=== PATIENT | male | born 1945 | race Caucasian/White ===

== ENCOUNTER → 2019-06-06 11:13 | Outpatient (CLI) | payer MEDICARE, OTHER, SELFPAY ==
[2019-06-06 13:59] LABS: Prostate Specific Ag, Diagnost 0 ng/mL (0.0-4.0)
== END ==
PROVIDERS: Visit Provider Urology
DX: C61 Malignant neoplasm of prostate (principal)
CPT/HCPCS: 36415; 84153

== ENCOUNTER → 2019-12-06 13:54 | Outpatient (CLI) | payer MEDICARE, SELFPAY ==
[2019-12-06 15:14] LABS: Prostate Specific Ag, Diagnost < 0.064 ng/ml (0.0-4.0)
== END ==
PROVIDERS: Visit Provider Urology
DX: C61 Malignant neoplasm of prostate (principal)
CPT/HCPCS: 36415; 84153

== ENCOUNTER → 2020-06-08 14:29 | Outpatient (CLI) | payer MEDICARE, BC, SELFPAY ==
[2020-06-08 16:11] LABS: Prostate Specific Ag, Diagnost < 0.064 ng/ml (0.0-4.0)
== END ==
PROVIDERS: Visit Provider Urology
DX: C61 Malignant neoplasm of prostate (principal)
CPT/HCPCS: 36415; 84153

== ENCOUNTER → 2020-12-07 13:57 | Outpatient (CLI) | payer MEDICARE, BC, SELFPAY ==
[2020-12-07 15:46] LABS: Prostate Specific Ag, Diagnost < 0.064 ng/ml (0.0-4.0)
== END ==
PROVIDERS: Visit Provider Urology
DX: C61 Malignant neoplasm of prostate (principal)
CPT/HCPCS: 36415; 84153

== ENCOUNTER → 2021-06-10 13:56 | Outpatient (CLI) | payer MEDICARE, BC, SELFPAY ==
[2021-06-10 16:05] LABS: Prostate Specific Ag, Diagnost < 0.064 ng/ml (0.0-4.0)
== END ==
PROVIDERS: Visit Provider Urology
DX: C61 Malignant neoplasm of prostate (principal)
CPT/HCPCS: 36415; 84153

== ENCOUNTER → 2021-12-10 14:22 | Outpatient (CLI) | payer MEDICARE, BC, SELFPAY ==
[2021-12-10 17:04] LABS: Prostate Specific Ag, Diagnost < 0.064 ng/ml (0.0-4.0)
== END ==
PROVIDERS: Visit Provider Urology
DX: C61 Malignant neoplasm of prostate (principal)
CPT/HCPCS: 36415; 84153